=== PATIENT | female | born 1955 | race Two or more races ===

== ENCOUNTER 2017-06-04 14:42 | Emergency (ER) | payer BC ==
[2017-06-04 14:57] VITALS: BP 109/63; PULSE 88; RESP 16; TEMP 99.1; O2SAT 95
--- NOTE | 2017-06-04 15:19 | ED PDOC ---
HPI: General Adult Time Seen by Provider: 06/04/17 14:59 Chief Complaint (Nursing): Flu-like Symptoms Chief Complaint (Provider): fever History Per: Patient History/Exam Limitations: no limitations Onset/Duration Of Symptoms: Days (x1 week) Current Symptoms Are (Timing): Still Present Additional Complaint(s): 62 year old female who presents to the emergency department for an evaluation of a fever ("Tmax: 110 degrees orally") associated with generalized body aches ongoing for 1 week. Denied headaches, chest pain, cough, sore throat, abdominal pain, nausea, vomiting, diarrhea or difficulty urinating. Patient stated she took an Advil half an hour prior to arrival. PMD: none provided Past Medical History Reviewed: Historical Data, Nursing Documentation, Vital Signs Vital Signs: Last Vital Signs Temp 99.1 F 06/04/17 14:54 Pulse 88 06/04/17 14:54 Resp 16 06/04/17 14:54 BP 109/63 06/04/17 14:54 Pulse Ox 95 06/04/17 20:48 - Family History Family History: States: Unknown Family Hx - Home Medications Home Medications: Ambulatory Orders Medication Instructions Recorded Cephalexin [Keflex] 500 mg PO BID #14 cap 10/17/15 Nitrofurantoin Macrocrystals 100 mg PO BID #14 cap 06/04/17 [Macrobid] - Allergies Allergies/Adverse Reactions: Allergies Allergy/AdvReac Type Severity Reaction Status Date / Time No Known Allergies Allergy Verified 06/04/17 14:53 Review of Systems ROS Statement: Except As Marked, All Systems Reviewed And Found Negative Constitutional: Positive for: Fever (subjective), Other (generalized bodyaches) ENT: Negative for: Throat Pain Cardiovascular: Negative for: Chest Pain Respiratory: Negative for: Cough Gastrointestinal: Negative for: Nausea, Vomiting, Abdominal Pain, Diarrhea Genitourinary Female: Negative for: Dysuria Neurological: Negative for: Headache Physical Exam - Reviewed Nursing Documentation Reviewed: Yes Vital Signs Reviewed: Yes - Physical Exam Appears: Positive for: Well, Non-toxic, No Acute Distress Head Exam: Positive for: ATRAUMATIC Skin: Positive for: Normal Color. Negative for: Rash, Jaundice Eye Exam: Positive for: Normal appearance, EOMI, PERRL. Negative for: Nystagmus , Scleral icterus (b/l) ENT: Positive for: Normal ENT Inspection, Pharynx Is (WNL). Negative for: Pharyngeal Erythema, Tonsillar Exudate Neck: Positive for: Normal, Painless ROM, Supple. Negative for: Decreased ROM Cardiovascular/Chest: Positive for: Regular Rate, Rhythm, Chest Non Tender Respiratory: Positive for: Normal Breath Sounds. Negative for: Decreased Breath Sounds, Respiratory Distress Gastrointestinal/Abdominal: Positive for: Normal Exam, Soft. Negative for: Tenderness Neurologic/Psych: Positive for: Alert (x3), Oriented - Laboratory Results Result Diagrams: 06/04/17 15:50 06/04/17 15:50 - ECG O2 Sat by Pulse Oximetry: 95 (RA) Pulse Ox Interpretation: Normal Medical Decision Making Medical Decision Making: Initial Impression: Fever Initial Plan: * VBG * CMP * Urine dipstick * CBC * Blood culture * Influenza A B * Rapid strep ____ US ordered due to elevated liver enzymes and elevated bilirubin. Pt. states when she was a teenager she had "yellowing" of he eyes and was told it was due to her liver. Reports symptoms eventually went away without any treatment or surgery. Time: 1953 --US ABD FINDINGS: Liver: Unremarkable in echogenicity and size measuring 14 cm in longitudinal dimension. No intrahepatic bile duct dilation. Gallbladder: The gallbladder is decompressed. No gallstones. Common bile duct: No stones. No dilation, measuring 4.2 mm. Pancreas: Visualization of the pancreas is limited by overlying bowel gas. Right kidney: Unremarkable in size measuring 11.3 x 4.5 x 4.8 cm. No hydronephrosis. Rounded focus of decreased echogenicity within the upper pole measuring 19 x 15 x 16 mm. No increased vascularity is identified. Trace internal debris is noted. No septations are present. Left Kidney: Unremarkable in echogenicity and size measuring 11.0 x 5.2 x 5.3 cm. No hydronephrosis. Spleen: Unremarkable in echogenicity and size measuring 8.3 cm in longitudinal dimension. Aorta: Unremarkable. Inferior vena cava: patent. IMPRESSION: Slightly complex cyst within the upper pole of the right kidney measuring 19 mm in greatest dimension. Limited evaluation of the pancreas, secondary to overlying bowel gas. Otherwise, unremarkable sonographic evaluation of the abdomen, as detailed above. ____ Time: 2039 --Upon provider reevaluation, patient is medically stable and requires no further treatment in the ED at this time. Informed of elevated liver enzymes, renal cyst and need for f/u. Pt. states she has an appointment with her PMD in [place] but does not remember name on . Patient will be discharged with Rx for Macrobid 100mg. Counseling was provided and all questions were answered regarding diagnosis and need for follow up with PCP. There is agreement to discharge plan. Return if symptoms persist or worsen. Clinical Impression: Transaminitis; kidney cysts; UTI Scribe Attestation: Documented by Tania Styles, acting as a scribe for Augustin Hope PA-C. Provider Scribe Attestation: All medical record entries made by the Scribe were at my direction and personally dictated by me. I have reviewed the chart and agree that the record accurately reflects my personal performance of the history, physical exam, medical decision making, and the department course for this patient. I have also personally directed, reviewed, and agree with the discharge instructions and disposition. Disposition - Clinical Impression Clinical Impression: Transaminitis, Kidney cysts, UTI (urinary tract infection) - Patient ED Disposition Is Patient to be Admitted: No Counseled Patient/Family Regarding: Studies Performed, Diagnosis, Need For Followup - Disposition Disposition: Routine/Home Disposition Time: 20:40 Condition: STABLE Prescriptions: Nitrofurantoin Macrocrystals [Macrobid] 100 mg PO BID #14 cap Instructions: Urinary Tract Infection in Women (ED), Kidney Cyst (ED) Forms: [place] (Citizen Of [place])
[2017-06-04 15:57] LABS: BASO % 0.4 % (0.0-2.0); EOS # 0.1 K/uL (0.0-0.7); EOS % 0.6 % (0.0-4.0); HEMATOCRIT 31.5 % (34.0-47.0); LYMPH # 0.6 K/uL (1.0-4.3); LYMPH % 7.1 % (20.0-40.0); MEAN CORPUSCULAR HEMOGLOBIN 30.7 pg (27.0-31.0); MEAN CORPUSCULAR HGB CONC 34.4 g/dL (33.0-37.0); MEAN PLATELET VOLUME 8.6 fl (7.2-11.7); MONO # 0.7 K/uL (0.0-0.8); MONO % 7.8 % (0.0-10.0); NEUT # 7.2 K/uL (1.8-7.0); NEUT % 84.1 % (50.0-75.0); PLATELET COUNT 266 K/uL (130-400); RED CELL DISTRIBUTION WIDTH 12.7 % (11.5-14.5)
[2017-06-04 16:11] LABS: CALCIUM 8.2 mg/dL (8.4-10.2); CARBON DIOXIDE 24 mmol/L (22-30); CHLORIDE 98 mmol/L (98-107); GFR AFRICAN-AMERICAN > 60; GLUCOSE,RANDOM 134 mg/dL (65-105); SODIUM 129 mmol/l (132-148)
[2017-06-04 16:12] LABS: WHITE BLOOD COUNT 8.5 K/uL (4.8-10.8)
[2017-06-04 16:22] LABS: ALB/GLOB RATIO 1.1 (1.0-2.1); ALKALINE PHOSPHATASE 142 U/L (38-126); ALT/SGPT 92 U/L (9-52); AST/SGOT 102 U/L (14-36); BILIRUBIN,TOTAL 1.4 mg/dl (0.2-1.3); BLOOD UREA NITROGEN 8 mg/dl (7-17); POTASSIUM 4.9 MMOL/L (3.6-5.0)
[2017-06-04 17:03] LABS: EOSINOPHIL 1 % (0-7); NEUTROPHIL 79 % (42-75); TOTAL CELLS COUNTED 100
[2017-06-04] MEDS ORDERED: Naproxen 500 MG TAB PO ONE ×2 (18:12→18:34)
--- NOTE | 2017-06-04 19:54 | US ---
EXAM: US Abdomen Complete CLINICAL HISTORY: 62 years old, female; Signs and symptoms; Fever; Additional info: Elevated liver enzymes, fever TECHNIQUE: Real-time ultrasound of the abdomen (complete) with image documentation. COMPARISON: No relevant prior studies available. FINDINGS: Liver: Unremarkable in echogenicity and size measuring 14 cm in longitudinal dimension. No intrahepatic bile duct dilation. Gallbladder: The gallbladder is decompressed. No gallstones. Common bile duct: No stones. No dilation, measuring 4.2 mm. Pancreas: Visualization of the pancreas is limited by overlying bowel gas. Right kidney: Unremarkable in size measuring 11.3 x 4.5 x 4.8 cm. No hydronephrosis. Rounded focus of decreased echogenicity within the upper pole measuring 19 x 15 x 16 mm. No increased vascularity is identified. Trace internal debris is noted. No septations are present. Left Kidney: Unremarkable in echogenicity and size measuring 11.0 x 5.2 x 5.3 cm. No hydronephrosis. Spleen: Unremarkable in echogenicity and size measuring 8.3 cm in longitudinal dimension. Aorta: Unremarkable. Inferior vena cava: patent. IMPRESSION: Slightly complex cyst within the upper pole of the right kidney measuring 19 mm in greatest dimension. Limited evaluation of the pancreas, secondary to overlying bowel gas. Otherwise, unremarkable sonographic evaluation of the abdomen, as detailed above.
== END 2017-06-04 21:39 | disposition home or self-care (01) ==
LOC: H.ER 14:42
DX: N39.0 Urinary tract infection, site not specified (principal); R74.0 Nonspecific elevation of levels of transaminase and lactic acid dehydrogenase [LDH]; N28.1 Cyst of kidney, acquired